=== PATIENT | female | born 1950 | race Caucasian/White ===

== ENCOUNTER 2016-12-06 13:31 | Inpatient (IN) | payer MEDICARE, OTHER ==
[~2016-12-06 13:31] MED LIST: ADVAIR 100-501 EACH IH; ANUSOL-HC25 MG PR; B-12500 MCG PO; COLCHICINE0.6 MG PO; EFFEXOR37.5 MG PO; ELIQUIS5 MG PO; FLEXERIL-DPS10 MG PO; IMDUR DPS30 MG PO; LASIX DPS40 MG PO; LOPRESSOR DPS100 MG PO; PROAIR RESPICL90 MCG IH; VITAMIN D5000 UNI1 PO; WELLBUTRIN SR100 M1 PO; XARELTO15 MG PO
[2016-12-12] MEDS ORDERED: IMDUR DPS30 MG PO (21:09)
[2016-12-12] MEDS ORDERED: NORCO 5-325 TA1 EACH PO (21:09)
[2016-12-12] MEDS ORDERED: PROTONIX40 MG PO (21:10)
[2016-12-12] MEDS ORDERED: PROVENTIL2.5 MG/3 M IH (21:10)
[2016-12-12] MEDS ORDERED: ZOFRAN4 MG PO (21:10)
[2016-12-12] MEDS ORDERED: KLOR-CON M2020 ME1 PO (21:10)
== END 2016-12-12 15:40 | disposition home or self-care (01) | DRG 843 ==
DX: C80.1 Malignant (primary) neoplasm, unspecified (principal); I26.99 Other pulmonary embolism without acute cor pulmonale; R18.0 Malignant ascites; I27.2 Other secondary pulmonary hypertension; E11.22 Type 2 diabetes mellitus with diabetic chronic kidney disease; Z68.43 Body mass index [BMI] 50.0-59.9, adult; I12.9 Hypertensive chronic kidney disease with stage 1 through stage 4 chronic kidney disease, or unspecified chronic kidney disease; G47.33 Obstructive sleep apnea (adult) (pediatric); E61.1 Iron deficiency; N18.9 Chronic kidney disease, unspecified; D64.9 Anemia, unspecified; E66.01 Morbid (severe) obesity due to excess calories; Z87.891 Personal history of nicotine dependence; Z82.49 Family history of ischemic heart disease and other diseases of the circulatory system